=== PATIENT | female | born 1960 | race Caucasian/White ===

== ENCOUNTER 2023-04-30 17:58 | Emergency (ER) | payer BC ==
[~2023-04-30] VITALS: Ht 172.7 cm; Wt 200.0 kg
[2023-04-30 18:22] VITALS: BP 166/88; PULSE 102; RESP 18; TEMP 97.8; O2SAT 99
[2023-04-30] MEDS ORDERED: CEPH-585 PO (18:27)
[2023-04-30] MEDS: cephalexin 250mg capsule PO ONE (18:53)
== END 2023-04-30 19:03 | disposition home or self-care (01) ==
LOC: ER 18:00
DX: Z48.01 Encounter for change or removal of surgical wound dressing (principal)
CPT/HCPCS: 99283